=== PATIENT | male | born 1980 ===

== ENCOUNTER 2019-01-11 19:40 | Emergency (ER) | payer MEDICAID ==
[~2019-01-11] VITALS: Ht 175.3 cm; Wt 74.8 kg
[2019-01-11 20:00] VITALS: Ht 175.3 cm; Wt 74.8 kg
[2019-01-11] MEDS ORDERED: VOLTAREN75 MG PO (20:36)
[2019-01-11] MEDS ORDERED: BACLOFEN20 M1 PO (20:36)
[2019-01-11 21:36] VITALS: BP 129/78
== END 2019-01-11 21:37 | disposition home or self-care (01) ==
LOC: D.ER 19:40
DX: S16.1XXA Strain of muscle, fascia and tendon at neck level, initial encounter (principal); V73.6XXA Passenger on bus injured in collision with car, pick-up truck or van in traffic accident, initial encounter; Y93.89 Activity, other specified; Y92.410 Unspecified street and highway as the place of occurrence of the external cause